=== PATIENT | male | born 1975 | race Caucasian/White ===

== ENCOUNTER 2016-05-02 15:03 | Emergency (ER) | payer OTHER ==
[2016-05-02 16:18] VITALS: BP 128/74
--- NOTE | 2016-05-02 16:45 | UC ---
Throat Pain/Nasal Sony HPI - HPI Summary HPI Summary: complaint of nasal congestion and cough that started approx 7 days ago productive cough with green secretions -secretions have blood in them sometimes sinus pressure and frequent headaches sinuses won't stop draining fever and chills for several days at beginning of illness N/V/D for the first 2 days taking OTC daytime -night time medications denies shortness of breath - History of Current Complaint Chief Complaint: UCGeneralIllness Stated Complaint: SINUSES,CHEST CONGESTION Time Seen by Provider: 05/02/16 16:40 Hx Obtained From: Patient - Allergies/Home Medications Allergies/Adverse Reactions: Allergies Allergy/AdvReac Type Severity Reaction Status Date / Time Erythromycin AdvReac Severe Stomach Verified 05/02/16 16:18 Cramps PMH/Surg Hx/FS Hx/Imm Hx Previously Healthy: Yes - Surgical History Surgical History: Yes Surgery Procedure, Year, and Place: kidney surgery- blocked tubes. hernia 2012. T & A and uvula surgery 04/17/14 - Family History Known Family History: Negative: Hypertension, Diabetes, Renal Disease - Social History Occupation: Employed Full-time Lives: With Family Alcohol Use: Occasionally Substance Use Type: None Smoking Status (MU): Former Smoker Type: Cigarettes Amount Used/How Often: 1/2 pack daily When Did the Patient Quit Smoking/Using Tobacco: 08/2013 - Immunization History Most Recent Influenza Vaccination: 02/03/15 Review of Systems Constitutional: Fever, Chills Skin: Negative Eyes: Negative ENT: Nasal Discharge Respiratory: Cough Cardiovascular: Negative Gastrointestinal: Negative Genitourinary: Negative Motor: Negative Neurovascular: Negative Musculoskeletal: Negative Neurological: Negative Psychological: Negative All Other Systems Reviewed And Are Negative: Yes Physical Exam Triage Information Reviewed: Yes Appearance: No Pain Distress, Ill-Appearing Vital Signs: Initial Vital Signs Temp 98.6 F 05/02/16 16:15 Pulse 63 05/02/16 16:15 Resp 16 05/02/16 16:15 BP 128/74 05/02/16 16:15 Pulse Ox 98 05/02/16 16:15 Vital Signs Reviewed: Yes Eyes: Positive: Conjunctiva Clear ENT: Positive: Pharyngeal erythema, Nasal congestion, Nasal drainage, TMs normal , Other: - frontal sinus tenderness Neck: Positive: No Lymphadenopathy Respiratory: Positive: Decreased breath sounds - in both bases. Negative: Rhonchi, Wheezing Cardiovascular: Positive: RRR, No Murmur, Pulses Normal Abdomen Description: Positive: Nontender, Soft Bowel Sounds: Positive: Present Musculoskeletal: Positive: No Edema Neurological: Positive: Alert Psychological Exam: Normal Skin Exam: Normal Throat Pain/Nasal Course/Dx - Differential Dx/Diagnosis Differential Diagnosis/HQI/PQRI: Sinusitis, URI, Other - bronchitis, pneumonia Provider Diagnoses: sinusitis Discharge - Discharge Plan Condition: Stable Disposition: HOME Prescriptions: Albuterol HFA INHALER* [Ventolin HFA Inhaler*] 2 puff INH Q4H PRN #1 mdi PRN Reason: Wheezing Amoxicillin/Clavulanate TAB* [Augmentin TAB 875*] 875 mg PO BID #20 tab Guaifenesin-Codeine [Cheratussin AC] 1 syp PO TID #120 syp MDD 30 ml Referrals: Hamlet Hernandez MD [Primary Care Provider] - Additional Instructions: Start antibiotic as directed Increase fluids and rest Take acetaminophen or ibuprofen for fever or pain Please review your discharge instructions. If your symptoms do not improve please call your primary care provider or return to urgent care
--- NOTE | 2016-05-02 17:18 | RAD ---
Indication: Cough, fever. 2 views of the chest including dual energy PA views demonstrate no mediastinal shift. Heart is of normal size and configuration. Lung ferrer demonstrate no pleural fluid, pneumonia or pneumothorax. No prior study is available for comparison. IMPRESSION: No active cardiopulmonary disease is noted.
== END 2016-05-02 17:36 | disposition home or self-care (01) ==
LOC: UCCORT 15:03
DX: J32.9 Chronic sinusitis, unspecified (principal); Z88.1 Allergy status to other antibiotic agents; Z87.891 Personal history of nicotine dependence
CPT/HCPCS: 71020; 99212; G0463

== ENCOUNTER 2018-02-22 17:10 | Emergency (ER) | payer OTHER ==
[2018-02-22 18:16] VITALS: BP 145/87
--- NOTE | 2018-02-22 19:00 | ED ---
Throat Pain/Nasal Congestion - HPI Summary HPI Summary: 42 yr old male with the complaint of 7 days of sinus congestion, post nasal drip , ear pain, coughing of green sputum. He states he smokes cigarettes. He has had some green nasal discharge as well. - History of Current Complaint Chief Complaint: UCGeneralIllness Time Seen by Provider: 02/22/18 18:39 - Allergies/Home Medications Allergies/Adverse Reactions: Allergies Allergy/AdvReac Type Severity Reaction Status Date / Time erythromycin base AdvReac GI Upset Verified 02/22/18 18:13 PMH/Surg Hx/FS Hx/Imm Hx Previously Healthy: Yes Respiratory History: Denies: Hx Asthma - Surgical History Surgery Procedure, Year, and Place: kidney surgery- blocked tubes. hernia 2012. 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 Denies: Traveled Outside the in Last 30 Days - Family History Known Family History: Negative: Hypertension, Diabetes, Renal Disease - Social History Occupation: Employed Full-time Alcohol Use: Occasionally Substance Use Type: Reports: None Smoking Status (MU): Former Smoker Type: Cigarettes Amount Used/How Often: 1/2 pack daily Review of Systems Constitutional: Negative Positive: Nasal Discharge, Other - sinus pain and pressure Positive: Cough All Other Systems Reviewed And Are Negative: Yes Physical Exam Triage Information Reviewed: Yes Vital Signs On Initial Exam: Initial Vitals Temp Pulse Resp BP Pulse Ox 98.8 F 88 15 145/87 100 02/22/18 18:12 02/22/18 18:12 02/22/18 18:12 02/22/18 18:12 02/22/18 18:12 Vital Signs Reviewed: Yes Appearance: Positive: Well-Appearing, No Pain Distress Skin: Positive: Warm, Skin Color Reflects Adequate Perfusion Head/Face: Positive: Normal Head/Face Inspection Eyes: Positive: EOMI ENT: Positive: Pharyngeal erythema, Nasal congestion, Nasal drainage, TM red - right red, Sinus tenderness Neck: Positive: Nontender Respiratory/Lung Sounds: Positive: Clear to Auscultation, Breath Sounds Present Cardiovascular: Positive: RRR. Negative: Murmur Abdomen Description: Negative: Distended Musculoskeletal: Positive: Strength/ROM Intact Neurological: Positive: Sensory/Motor Intact, Alert, Oriented to Person Place, Time, CN Intact II-III Psychiatric: Positive: Normal - Wilian Coma Scale Best Eye Response: 4 - Spontaneous Best Motor Response: 6 - Obeys Commands Best Verbal Response: 5 - Oriented Coma Scale Total: 15 Diagnostics - Vital Signs Vital Signs Temp Pulse Resp BP Pulse Ox 02/22/18 18:12 98.8 F 88 15 145/87 100 - Laboratory Lab Statement: Any lab studies that have been ordered have been reviewed, and results considered in the medical decision making process. EENT Course/Dx - Course Course Of Treatment: 42 yr old male with sinusitis. RIght OM. Rx with Cefdinir. - Diagnoses Provider Diagnoses: Sinusitis, Otitis media Discharge - Sign-Out/Discharge Documenting (check all that apply): Patient Departure All imaging exams completed and their final reports reviewed: No Studies - Discharge Plan Condition: Good Disposition: HOME Prescriptions: Cefdinir [Cefdinir 300 MG CAP] 300 mg PO BID #20 cap Patient Education Materials: Sinusitis (ED), Ear Infection (ED), Hypertension ( ED) Referrals: Hamlet Hernandez MD [Primary Care Provider] - 2 Days - Billing Disposition and Condition Condition: GOOD Disposition: Home
== END 2018-02-22 19:12 | disposition home or self-care (01) ==
LOC: UCCORT 17:10
DX: J32.9 Chronic sinusitis, unspecified (principal); H66.91 Otitis media, unspecified, right ear; Z88.1 Allergy status to other antibiotic agents; Z87.891 Personal history of nicotine dependence
CPT/HCPCS: 99212; G0463